=== PATIENT | male | born 1960 | race Caucasian/White ===

== ENCOUNTER 2019-02-12 08:25 | Inpatient (IN) | payer BC ==
[~2019-02-12] VITALS: Ht 177.8 cm; Wt 78.6 kg
[2019-02-14 07:54] VITALS: BP 108/60
== END 2019-02-14 15:15 | disposition home or self-care (01) | DRG 603 ==
LOC: ED 11:18 → EDIP 13:07 → 3NE 15:38 → DCLOUNGE 02-14 15:08
PROVIDERS: ADMIT Family Medicine; ATTEND Family Medicine
PROC: 0H91XZZ Drainage of Face Skin, External Approach (ICD-10-PCS; principal; 2019-02-13)
DX: L02.01 Cutaneous abscess of face (principal); R65.10 Systemic inflammatory response syndrome (SIRS) of non-infectious origin without acute organ dysfunction; E87.1 Hypo-osmolality and hyponatremia; E27.1 Primary adrenocortical insufficiency; K13.0 Diseases of lips; Z66 Do not resuscitate; L73.1 Pseudofolliculitis barbae; F17.210 Nicotine dependence, cigarettes, uncomplicated; E03.9 Hypothyroidism, unspecified; E11.9 Type 2 diabetes mellitus without complications; H40.9 Unspecified glaucoma; Z96.641 Presence of right artificial hip joint; Z79.4 Long term (current) use of insulin; Z82.49 Family history of ischemic heart disease and other diseases of the circulatory system; Z79.899 Other long term (current) drug therapy
CPT/HCPCS: 36415; 70491; 80048; 80053; 82040; 82962; 83605; 83735; 84100; 85025; 87040; 87070; 87077; 87081; 87186; 87205; 96374; 96375; 99285; G0378; J0295; J2405; J2550; J7060; Q9967; J1815; J2270; J3475; J7030

== ENCOUNTER 2019-06-11 10:44 | Inpatient (IN) | payer BC ==
[~2019-06-11] VITALS: Ht 175.3 cm; Wt 75.7 kg
[~2019-06-11 10:44] MED LIST: AMOX1TAB64 PO; CEPH-368 PO; DOXY100C2 PO; DOXY100T PO; ESZO3TAB28 PO; HYDROCORTISONE PO; INSU100C5 SQ-INSULIN; LEVO112T4 PO; TRESIBA
[2019-06-11] MEDS ORDERED: SODIUM CHLORIDE FLUSH 10ML SYR IVF ONE (11:30)
[2019-06-11] MEDS ORDERED: SODIUM CHLORIDE 0.9% 1,000ML IVBOLUS ONE ×2 (11:30→15:30)
[2019-06-11] MEDS ORDERED: ONDANSETRON 2MG/ML, 2ML IVPush ONE (11:30)
[2019-06-11] MEDS ORDERED: MORPHINE SULFATE 4 MG/ML, 1ML IVPush PRN (11:30)
[2019-06-11] MEDS ORDERED: ONDANSETRON 2MG/ML, 2ML ONE (11:34)
[2019-06-11] MEDS ORDERED: MORPHINE SULFATE 4 MG/ML, 1ML ONE (11:35)
[2019-06-11 11:47] LABS: BASOPHILS # (AUTO) 0.04 x10^3/uL (0-0.1); BASOPHILS % (AUTO) 1 % (0-1); EOSINOPHILS # (AUTO) 0.16 x10^3/uL (0-0.4); EOSINOPHILS % (AUTO) 3 % (1-7); LYMPHOCYTES # (AUTO) 1.19 x10^3/uL (1-3.4); LYMPHOCYTES % (AUTO) 20 % (22-44); MD NO; MEAN CORPUSCULAR HEMOGLOBIN 30.1 pg (27.5-34.5); MEAN CORPUSCULAR HGB CONC 33.9 g/dL (33.2-36.2); MEAN CORPUSCULAR VOLUME 88.9 fL (81-97); MEAN PLATELET VOLUME 9.3 fL (7.4-10.4); MONOCYTES # (AUTO) 0.43 x10^3/uL (0.2-0.8); MONOCYTES % (AUTO) 7 % (2-9); NEUTROPHILS # (AUTO) 4.15 x10^3/uL (1.8-6.8); NEUTROPHILS % (AUTO) 70 % (42-75); PLATELET COUNT 195 x10^3/uL (130-400); RED BLOOD COUNT 5.32 x10^6/uL (4.38-5.82); RED CELL DISTRIBUTION WIDTH 14.2 % (9.4-14.8)
[2019-06-11 12:00] LABS: ALBUMIN 3.6 g/dL (3.4-5.0); ANION GAP 17 mmol/L (5-15); CHLORIDE 100 mmol/L (98-107)
[2019-06-11 12:03] LABS: ALANINE AMINOTRANSFERASE 26 U/L (12-78); ALKALINE PHOSPHATASE 69 U/L (45-117); BILIRUBIN,TOTAL 1.2 mg/dL (0.2-1.0); CREATININE 1.13 mg/dL (0.7-1.3); TOTAL PROTEIN 8.2 g/dL (6.4-8.2)
--- NOTE | 2019-06-11 13:00 | NUR ---
Note romeo in EDM - 06/11/19 at 1316 by KIRSTIE pt c/o left sided chest pain x 2 days, worse with palpation and SOB. pt reports feeling very anxious. pt sitting on LESLIE negro VSS.
--- NOTE | 2019-06-11 13:16 | NUR ---
pt c/o nausea, vomiting, abd pain x 3 days. pt reports feeling better after medication administration. pt sitting on LESLIE negro VSS.
[2019-06-11 13:17] LABS: MICROSCOPIC INDICATED
[2019-06-11 13:30] LABS: CULTURE INDICATED? NO
[2019-06-11] MEDS ORDERED: REGULAR INSULIN 62.5 UNITS in SODIUM CHLORIDE 0.9% 249.375 ML IV PRN (14:47)
[2019-06-11] MEDS ORDERED: PROMETHAZINE 25 MG/ML, 1ML IM ONE (15:00)
[2019-06-11] MEDS: NS + 20MEQ KCL 1,000 ML IV SCH (15:12)
[2019-06-11] MEDS ORDERED: ACETAMINOPHEN 325 MG TABLET PO PRN (15:30)
[2019-06-11] MEDS ORDERED: POLYETHYLENE GLYCOL 17 GM PACKET PO PRN (15:30)
[2019-06-11] MEDS ORDERED: ONDANSETRON 2MG/ML, 2ML IVPush PRN (15:30)
[2019-06-11] MEDS ORDERED: DOCUSATE 100 MG CAPSULE PO PRN (15:30)
[2019-06-11] MEDS ORDERED: ENOXAPARIN 40 MG/0.4 ML SQ SCH (15:30)
[2019-06-11] MEDS ORDERED: BISACODYL 10 MG SUPP PR PRN (15:30)
[2019-06-11] MEDS ORDERED: ENOXAPARIN 40 MG/0.4 ML ONE (15:37)
[2019-06-11] MEDS ORDERED: NS + 20MEQ KCL 1,000 ML IV ONE (15:37)
[2019-06-11] MEDS ORDERED: PROMETHAZINE 25 MG/ML, 1ML ONE (15:41)
--- NOTE | 2019-06-11 15:53 | NUR ---
LUNCH RN: MEDS ADMIN PER SEP. PT RESTING COMFORTABLY ON GURNEY. LESLIE.
[2019-06-11] MEDS: INSULIN LISPRO 100 UNITS/ML, PEN SQ-INSULIN SCH ×2 (16:00→21:11)
[2019-06-11] MEDS ORDERED: DEXAMETHASONE 4 MG/ML, 1ML IVPush ONE (16:00)
[2019-06-11] MEDS ORDERED: COSYNTROPIN 0.25 MG IM ONE (16:00)
[2019-06-11 16:17] LABS: HEMOGLOBIN A1C 7.9 % (4.2-6.3)
[2019-06-11 16:29] LABS: ACETONE, SERUM Negative (Negative)
[2019-06-11] MEDS ORDERED: DEXAMETHASONE 4 MG/ML, 1ML ONE (16:59)
[2019-06-11] MEDS: INSULIN GLARGINE 100 UNITS/ML, PEN SQ-INSULIN SCH ×2 (19:00→21:11)
[2019-06-11 20:25] VITALS: BP 136/69
[2019-06-11 22:18] LABS: RAPID INFLUENZA A Negative (Negative); RAPID INFLUENZA B Negative (Negative)
[2019-06-12 00:56] VITALS: BP 154/82
[2019-06-12] MEDS: NS + 20MEQ KCL 1,000 ML IV SCH (01:16)
[2019-06-12] MEDS ORDERED: FLU VACC QS2019-20 36MOS UP/PF 0.5 ML IM-VACC ONE (06:00)
[2019-06-12 06:08] LABS: MEAN CORPUSCULAR HGB CONC 33.2 g/dL (33.2-36.2); MEAN CORPUSCULAR VOLUME 90.5 fL (81-97); MEAN PLATELET VOLUME 9.4 fL (7.4-10.4); PLATELET COUNT 184 x10^3/uL (130-400); RED BLOOD COUNT 4.75 x10^6/uL (4.38-5.82); RED CELL DISTRIBUTION WIDTH 13.8 % (9.4-14.8)
[2019-06-12 06:14] LABS: ANION GAP 12 mmol/L (5-15); CALCIUM 8.2 mg/dL (8.5-10.1); CHLORIDE 107 mmol/L (98-107)
[2019-06-12 06:18] LABS: ALANINE AMINOTRANSFERASE 21 U/L (12-78); ALKALINE PHOSPHATASE 56 U/L (45-117); BILIRUBIN,TOTAL 1.1 mg/dL (0.2-1.0); CREATININE 0.86 mg/dL (0.7-1.3)
[2019-06-12] MEDS ORDERED: SODIUM CHLORIDE 0.9% 1,000 ML IV SCH (07:00)
[2019-06-12 07:01] LABS: BASOPHILS # (AUTO) 0.01 x10^3/uL (0-0.1); BASOPHILS % (AUTO) 0 % (0-1); EOSINOPHILS % (AUTO) 0 % (1-7); LYMPHOCYTES # (AUTO) 0.62 x10^3/uL (1-3.4); LYMPHOCYTES % (AUTO) 14 % (22-44); MD SCAN; MONOCYTES # (AUTO) 0.05 x10^3/uL (0.2-0.8); MONOCYTES % (AUTO) 1 % (2-9); NEUTROPHILS # (AUTO) 3.65 x10^3/uL (1.8-6.8); NEUTROPHILS % (AUTO) 84 % (42-75)
[2019-06-12 07:20] VITALS: BP 163/69
[2019-06-12] MEDS: INSULIN LISPRO 100 UNITS/ML, PEN SQ-INSULIN SCH ×2 (08:24→11:18)
[2019-06-12] MEDS ORDERED: LEVOTHYROXINE 112 MCG TABLET PO SCH (09:00)
[2019-06-12] MEDS ORDERED: INSULIN GLARGINE 100 UNITS/ML, PEN SQ-INSULIN SCH (09:00)
[2019-06-12 13:30] VITALS: BP 118/75
== END 2019-06-12 15:30 | disposition home or self-care (01) | DRG 638 ==
LOC: ED 13:46 → EDIP 14:50 → 3N 19:12 → DCLOUNGE 06-12 15:22
PROVIDERS: ADMIT Internal Medicine; ATTEND Internal Medicine
DX: E11.10 Type 2 diabetes mellitus with ketoacidosis without coma (principal); E27.1 Primary adrenocortical insufficiency; E87.1 Hypo-osmolality and hyponatremia; E03.9 Hypothyroidism, unspecified; F17.210 Nicotine dependence, cigarettes, uncomplicated; H40.9 Unspecified glaucoma; Z82.49 Family history of ischemic heart disease and other diseases of the circulatory system; Z86.19 Personal history of other infectious and parasitic diseases; Z96.641 Presence of right artificial hip joint; R00.0 Tachycardia, unspecified; A08.4 Viral intestinal infection, unspecified
CPT/HCPCS: 36415; 36600; 71045; 74021; 80053; 81001; 82010; 82024; 82533; 82803; 82962; 83036; 83605; 83690; 83735; 84100; 85025; 87400; 90686; G0378; J1100; J1650; J2405; J2550; J3480; J0834; J1815; J2270; J7030

== ENCOUNTER 2020-09-19 14:32 | Inpatient (IN) | payer SELFPAY ==
[~2020-09-19] VITALS: Ht 177.8 cm; Wt 69.1 kg
[2020-09-19] MEDS ORDERED: ONDANSETRON 2MG/ML, 2ML ONE (14:44)
[2020-09-19 14:56] LABS: PH, VENOUS 7.292 pH (7.320-7.420)
[2020-09-19 14:57] LABS: FIO2 ROOM AIR %
[2020-09-19 14:58] LABS: BASOPHILS % (AUTO) 1 % (0-1); EOSINOPHILS % (AUTO) 0 % (1-7); LYMPHOCYTES % (AUTO) 13 % (22-44); MEAN CORPUSCULAR HEMOGLOBIN 30.2 pg (27.5-34.5); MEAN CORPUSCULAR HGB CONC 34.2 g/dL (33.2-36.2); MEAN PLATELET VOLUME 9.4 fL (7.4-10.4); MONOCYTES % (AUTO) 5 % (2-9); NEUTROPHILS % (AUTO) 82 % (42-75); PLATELET COUNT 274 x10^3/uL (130-400); RED BLOOD COUNT 4.97 x10^6/uL (4.38-5.82); RED CELL DISTRIBUTION WIDTH 14.3 % (9.4-14.8)
[2020-09-19 14:59] LABS: MD NO
[2020-09-19] MEDS ORDERED: ONDANSETRON 2MG/ML, 2ML IM ONE (15:00)
[2020-09-19] MEDS ORDERED: SODIUM CHLORIDE 0.9% 1,000ML IVBOLUS ONE (15:00)
[2020-09-19] MEDS ORDERED: INSULIN REGULAR 100 UNITS/ML, 3ML VIAL IVPush ONE (15:00)
[2020-09-19 15:08] LABS: ALANINE AMINOTRANSFERASE 28 U/L (12-78); ALBUMIN 3.8 g/dL (3.4-5.0); ANION GAP 15 mmol/L (5-15); CALCIUM 8.5 mg/dL (8.5-10.1); CHLORIDE 96 mmol/L (98-107); CREATININE 1.29 mg/dL (0.7-1.3)
[2020-09-19 15:12] LABS: ALKALINE PHOSPHATASE 74 U/L (45-117); BILIRUBIN,TOTAL 1.8 mg/dL (0.2-1.0); TROPONIN I < 0.015 ng/mL (0.000-0.045)
[2020-09-19 15:19] LABS: ACETONE, SERUM Large (80mg/dL) (Negative)
[2020-09-19] MEDS ORDERED: INSULIN SINGLE DOSE, ER ONE (15:27)
[2020-09-19] MEDS ORDERED: POLYETHYLENE GLYCOL 17 GM PACKET PO PRN (16:00)
[2020-09-19] MEDS ORDERED: BISACODYL 10 MG SUPP PR PRN (16:00)
[2020-09-19] MEDS ORDERED: ONDANSETRON 2MG/ML, 2ML IVPush PRN (16:00)
[2020-09-19] MEDS ORDERED: OXYcodone IR 5MG TABLET PO PRN (16:00)
[2020-09-19] MEDS ORDERED: LABETALOL 5MG/ML, 20ML IVPush PRN (16:00)
[2020-09-19] MEDS ORDERED: ENALAPRILAT 1.25 MG/ML, 2ML IVPush PRN (16:00)
[2020-09-19] MEDS ORDERED: INSULIN LISPRO 100 UNITS/ML, PEN SQ-INSULIN SCH (16:00)
[2020-09-19] MEDS ORDERED: METOCLOPRAMIDE 5 MG/ML, 2ML IVPush ONE (16:00)
[2020-09-19] MEDS ORDERED: ACETAMINOPHEN 325 MG TABLET PO PRN (16:00)
[2020-09-19] MEDS ORDERED: METOCLOPRAMIDE 5 MG/ML, 2ML ONE (16:11)
[2020-09-19] MEDS ORDERED: ENOXAPARIN 40 MG/0.4 ML ONE (16:11)
[2020-09-19] MEDS: SODIUM CHLORIDE 0.9% 1,000 ML IV SCH (16:13)
[2020-09-19] MEDS: ENOXAPARIN 40 MG/0.4 ML SQ SCH (17:41)
[2020-09-19] MEDS: INSULIN LISPRO 100 UNITS/ML, PEN SQ-INSULIN SCH ×2 (17:44→20:01)
[2020-09-19] MEDS: INSULIN GLARGINE 100 UNITS/ML, PEN SQ-INSULIN SCH (17:44)
[2020-09-19 18:02] VITALS: BP 142/84
[2020-09-19 18:53] LABS: MICROSCOPIC NOT IND
[2020-09-20] MEDS: SODIUM CHLORIDE 0.9% 1,000 ML IV SCH (01:40)
[2020-09-20] MEDS: INSULIN LISPRO 100 UNITS/ML, PEN SQ-INSULIN SCH ×6 (04:34→19:43)
[2020-09-20 04:42] LABS: ANION GAP 11 mmol/L (5-15); CALCIUM 7.8 mg/dL (8.5-10.1); CHLORIDE 107 mmol/L (98-107); CREATININE 0.69 mg/dL (0.7-1.3)
[2020-09-20] MEDS: INSULIN GLARGINE 100 UNITS/ML, PEN SQ-INSULIN SCH ×2 (06:00→17:56)
[2020-09-20] MEDS: LEVOTHYROXINE 112 MCG TABLET PO SCH (06:15)
[2020-09-20] MEDS: SENNA/DOCUSATE TABLET PO SCH (09:00)
[2020-09-20] MEDS: HYDROCORTISONE 10 MG TABLET PO SCH (09:43)
[2020-09-20 11:24] VITALS: BP 136/74
[2020-09-20 15:02] VITALS: BP 125/77
[2020-09-20] MEDS: ENOXAPARIN 40 MG/0.4 ML SQ SCH (16:27)
[2020-09-20 18:56] VITALS: BP 137/78
[2020-09-21 00:23] VITALS: BP 118/66
[2020-09-21] MEDS: INSULIN GLARGINE 100 UNITS/ML, PEN SQ-INSULIN SCH (05:39)
[2020-09-21] MEDS: LEVOTHYROXINE 112 MCG TABLET PO SCH (05:39)
[2020-09-21 07:02] VITALS: BP 152/79
[2020-09-21] MEDS: HYDROCORTISONE 10 MG TABLET PO SCH (07:26)
[2020-09-21] MEDS: SENNA/DOCUSATE TABLET PO SCH (07:26)
[2020-09-21] MEDS: INSULIN LISPRO 100 UNITS/ML, PEN SQ-INSULIN SCH ×2 (07:33→11:03)
[2020-09-21] MEDS ORDERED: INSU100I11 SQ (11:46)
[2020-09-21] MEDS ORDERED: INSU100V8 SQ ×3 (11:46→11:47)
[2020-09-21 12:14] VITALS: BP 144/80
[2020-09-21 12:17] VITALS: BP 133/82
== END 2020-09-21 13:33 | disposition home or self-care (01) | DRG 637 ==
LOC: ED 15:27 → EDIP 15:28 → ED 15:38 → CCU 17:34 → 3N 09-20 11:23
PROVIDERS: ADMIT Internal Medicine; ATTEND Internal Medicine
DX: E10.10 Type 1 diabetes mellitus with ketoacidosis without coma (principal); N17.0 Acute kidney failure with tubular necrosis; E27.1 Primary adrenocortical insufficiency; E03.9 Hypothyroidism, unspecified; Z96.641 Presence of right artificial hip joint; H40.9 Unspecified glaucoma; Z79.4 Long term (current) use of insulin; Z79.52 Long term (current) use of systemic steroids; Z82.49 Family history of ischemic heart disease and other diseases of the circulatory system; Z86.14 Personal history of Methicillin resistant Staphylococcus aureus infection
CPT/HCPCS: 36415; 71045; 80048; 80053; 81003; 82010; 82803; 82962; 83735; 84484; 85025; 87081; 93005; 96361; 96372; 96374; 99291; G0378; J1650; J1815; J2405; J2765; J7030